=== PATIENT | male | born 1980 | race Caucasian/White ===

== ENCOUNTER 2019-06-15 18:43 | Emergency (ER) | payer OTHER ==
[~2019-06-15] VITALS: Ht 182.9 cm; Wt 125.2 kg
--- NOTE | 2019-06-15 19:13 | PHYS DOC ---
Adult General Chief Complaint Chief Complaint: FLU SYMPTOM HPI HPI Patient is a 39-year-old male who presents complaint of flulike symptoms X2 days including body ache, sore throat, cough. He has taken Tylenol and Tylenol PM for symptoms. Sick contacts include his niece with similar symptoms. He denies chest pain or shortness of breath. Review of Systems Review of Systems All other ROS is negative unless otherwise stated in HPI Allergies Allergies Allergies Coded Allergies Type Severity Reaction Last Updated Verified No Known Drug Allergies 06/15/19 No Physical Exam Physical Exam See above Constitutional: Well developed, well nourished, no acute distress, non-toxic appearance. [] HENT: Normocephalic, atraumatic, bilateral external ears normal, oropharynx mois t, posterior pharynx erythema Eyes: PERRLA, EOMI, conjunctiva normal, no discharge. [] Neck: Normal range of motion, no tenderness, supple, no stridor. [] Cardiovascular:Heart rate regular rhythm, no murmur [] Lungs & Thorax: Bilateral breath sounds clear to auscultation [] Abdomen: Bowel sounds normal, soft, no tenderness, no masses, no pulsatile masses. [] Skin: Warm, dry, no erythema, no rash. [] Back: No tenderness, no CVA tenderness. [] Extremities: No tenderness, no cyanosis, no clubbing, ROM intact, no edema. [] Neurologic: Alert and oriented X 3, normal motor function, normal sensory function, no focal deficits noted. [] Psychologic: Affect normal, judgement normal, mood normal. [] EKG EKG [] Radiology/Procedures Radiology/Procedures [] Course & Med Decision Making Course & Med Decision Making Pertinent Labs and Imaging studies reviewed. (See chart for details) We'll check strep and flu. Differential diagnosis includes viral syndrome, flu, strep. Neg flu. Will give prednisone for symptom relief. Dragon Disclaimer Dragon Disclaimer This electronic medical record was generated, in whole or in part, using a voice recognition dictation system. Departure Departure: Impression: Primary Impression: Flu-like symptoms Disposition: 01 HOME, SELF-CARE Condition: STABLE Referrals: PCP,NO (PCP) Patient Instructions: Influenza, Adult Additional Instructions: Physical prescriptions as prescribed. He may alternate ibuprofen and Tylenol for fever. Follow-up with your doctor for symptoms that do not seem to be improving over the next 5-7 days. Scripts Prednisone (PREDNISONE) 50 Mg Tablet 50 MG PO DAILY for Flu-like symptoms for 5 Days, #5 TAB Prov: ROWENA HAZEL DO 06/15/19 ROWENA HAZEL DO Jun 15, 2019 19:13
[2019-06-15 20:07] LABS: INFLUENZA A PATIENT NEGATIVE (NEGATIVE); INFLUENZA B PATIENT NEGATIVE (NEGATIVE)
[2019-06-15] MEDS ORDERED: PRED50TA PO (20:15)
[2019-06-15 20:55] VITALS: BP 142/94
== END 2019-06-15 20:58 | disposition home or self-care (01) ==
LOC: ER 18:43
DX: J02.9 Acute pharyngitis, unspecified (principal); R05 Cough; M79.10 Myalgia, unspecified site
CPT/HCPCS: 87070; 87804; 87880; 99283